=== PATIENT | female | born 1945 | race Caucasian/White ===

== ENCOUNTER → 2016-10-06 | Outpatient (CLI) | payer BC, OTHER ==
[~2016-10-06] MED LIST: AMBIEN; BENICAR; PHENERGAN 25 MG25 M1 PO
== END ==
LOC: RAD 09:39
DX: M19.91 Primary osteoarthritis, unspecified site (principal); M79.642 Pain in left hand; T14.90 Injury, unspecified

== ENCOUNTER → 2017-08-13 | Outpatient (CLI) | payer BC, OTHER ==
--- NOTE | ~2017-08-13 | EKG ---
[address] [address] ELECTROCARDIOGRAM REPORT Name: BRYAN PONCE Room #: REG CLI [facility].#: [id number] Admission: 08/13/17 Attend Phys: Physician not on staff Discharge: Date of : 43 Report #: [id number] THIS REPORT FOR: //name// [facility] Test Date: 2017-08-13 Test Time: 14:25:11 Pat Name: BRYAN PONCE Department: Room: Gender: F [facility] Specialist: Ayan BAZAN : 1945 Requested By: Physician staff Order Number: [id number] MD: Gregg Sue Measurements Intervals [place] Rate: 82 P: 55 [place]: 143 QRS: 45 QRSD: 87 T: 39 QT: 366 QTc: 428 Interpretive Statements Sinus rhythm Compared to ECG 02/28/2011 19:06:15 No significant changes Electronically Signed On 08-13-2017 21:34:22 STAFFING AND SCHEDULING COORDINATOR by Gregg Sue [email or web address] <ELECTRONICALLY SIGNED> By: Gregg Sue MD 08/13/17 2134 1425 1425 Gregg Sue MD /THIAGO
== END ==
LOC: CV 14:06
DX: Z01.812 Encounter for preprocedural laboratory examination (principal)

== ENCOUNTER → 2018-07-29 | Outpatient (CLI) | payer BC, OTHER | LOC: RAD 08:06 | DX: Z12.31 Encounter for screening mammogram for malignant neoplasm of breast (principal) ==

== ENCOUNTER → 2019-08-05 | Outpatient (CLI) | payer OTHER | LOC: RAD 08:50 | DX: Z12.31 Encounter for screening mammogram for malignant neoplasm of breast (principal) ==

== ENCOUNTER → 2020-08-24 | Outpatient (CLI) | payer OTHER | LOC: BC 08:28 | PROVIDERS: ATTEND Family Medicine | DX: Z12.31 Encounter for screening mammogram for malignant neoplasm of breast (principal) ==

== ENCOUNTER → 2021-07-05 | Outpatient (CLI) | payer OTHER | LOC: NUC 10:17 | PROVIDERS: ATTEND Family Medicine | DX: M85.88 Other specified disorders of bone density and structure, other site (principal); M89.49 Other hypertrophic osteoarthropathy, multiple sites ==

== ENCOUNTER → 2021-08-25 | Outpatient (CLI) | payer OTHER | LOC: BC 08:51 | PROVIDERS: ATTEND Family Medicine | DX: Z12.31 Encounter for screening mammogram for malignant neoplasm of breast (principal) ==